=== PATIENT | female | born 1990 | race Two or more races ===

== ENCOUNTER → 2020-01-01 | Outpatient (CLI) | payer BC ==
--- NOTE | 2020-01-01 16:57 | RAD ---
LUMBAR SPINE 2-3V, HIP RIGHT 1 VIEW WITH PELVIS History: Right hip and low back pain for 2 days Comparison: None. Lumbar spine: Findings: 3 views of the lumbar spine are submitted. Lumbar vertebral body stature and AP alignment are maintained. There is mild L4-5 and L5-S1 degenerative disc disease. There is facet degenerative change at L5-S1. No acute osseous abnormality is identified by radiographs. Small calcification in the left pelvis could be a phlebolith. Impression: 1. No acute osseous abnormality is identified by radiographs, suspected mild degenerative disc disease L4-5 and L5-S1 and facet degenerative change at L5-S1. 2. Small calcification left pelvis is more likely phlebolith assuming no clinical suspicion for distal ureteral calculus. AP pelvis and single view right hip FINDINGS: AP view the pelvis and single lateral view of the right hip are submitted. No acute fracture or dislocation is identified. There is a small focus of nonspecific sclerosis of the right femoral neck. IMPRESSION: 1.No acute osseous abnormality is identified. 2. There is small nonspecific sclerotic focus of the right femoral neck although may be a bone island. Electronically signed by: Bogdan Silva MD (01/01/2020 4:54 PM) [facility]
== END | disposition home or self-care (01) ==
LOC: RAD 16:03
PROVIDERS: ATTEND Nurse Practitioner Gerontology
DX: M51.37 Other intervertebral disc degeneration, lumbosacral region (principal); M47.817 Spondylosis without myelopathy or radiculopathy, lumbosacral region; M25.551 Pain in right hip
CPT/HCPCS: 72100; 73501